=== PATIENT | female | born 1975 | race Caucasian/White ===

== ENCOUNTER 2017-06-04 18:31 | Emergency (ER) | payer BC ==
[~2017-06-04] VITALS: Ht 172.7 cm; Wt 97.7 kg
[2017-06-04] MEDS ORDERED: MELOXICAM15 MG PO (18:48)
[2017-06-04] MEDS ORDERED: PERCOCET 325 MG1 TA2 PO (18:49)
[2017-06-04] MEDS ORDERED: COLACE100 M1 PO (18:49)
[2017-06-04] MEDS ORDERED: ZOFRAN4 M2 PO (18:50)
[2017-06-04] MEDS ORDERED: GOOD NEIGHBOR325 MG PO (18:50)
[2017-06-04 20:55] VITALS: BP 137/90
== END 2017-06-04 20:55 | disposition home or self-care (01) ==
LOC: ED 18:31
DX: K59.00 Constipation, unspecified (principal)